=== PATIENT | male | born 1975 | race Caucasian/White ===

== ENCOUNTER 2017-01-28 13:59 | Emergency (ER) | payer MEDICARE ==
[~2017-01-28] VITALS: Ht 172.7 cm; Wt 64.1 kg
[~2017-01-28 13:59] MED LIST: FLEXERIL 1010 MG/TAB PO; NAPROXEN500 MG PO; PREDNISONE10 MG PO; TUSSIONEX PENN115 ML PO
[2017-01-28] MEDS ORDERED: CYCLOBENZAPRIN7.5 MG PO (15:26)
[2017-01-28] MEDS ORDERED: NAPROXEN500 MG PO (15:26)
[2017-01-28] MEDS ORDERED: PREDNISONE20 M1 PO (15:26)
[2017-01-28 15:58] VITALS: BP 103/63
== END 2017-01-28 15:42 | disposition home or self-care (01) ==
LOC: ED 13:59
DX: S39.012A Strain of muscle, fascia and tendon of lower back, initial encounter (principal); X50.0XXA Overexertion from strenuous movement or load, initial encounter
CPT/HCPCS: J1885; J2360

== ENCOUNTER 2017-09-23 09:38 | Emergency (ER) | payer SELFPAY ==
[~2017-09-23] VITALS: Ht 172.7 cm; Wt 64.1 kg
[~2017-09-23 09:38] MED LIST changes: +CYCLOBENZAPRIN7.5 MG PO; +PREDNISONE20 M1 PO
[2017-09-23] MEDS ORDERED: GOOD NEIGHBOR200 M3 PO (09:46)
[2017-09-23 10:50] VITALS: BP 107/73
[2017-09-23] MEDS ORDERED: IBU800 M1 PO (10:51)
[2017-09-23] MEDS ORDERED: SKELAXIN 800MG800 MG PO (10:51)
== END 2017-09-23 10:55 | disposition home or self-care (01) ==
LOC: ED 09:38
DX: S20.222A Contusion of left back wall of thorax, initial encounter (principal); W22.8XXA Striking against or struck by other objects, initial encounter; F17.210 Nicotine dependence, cigarettes, uncomplicated

== ENCOUNTER 2018-10-06 13:35 | Emergency (ER) | payer SELFPAY ==
[~2018-10-06] VITALS: Ht 172.7 cm; Wt 63.6 kg
[~2018-10-06 13:35] MED LIST changes: +GOOD NEIGHBOR200 M3 PO; +IBU800 M1 PO; +SKELAXIN 800MG800 MG PO
[2018-10-06 13:40] VITALS: BP 130/86
[2018-10-06] MEDS ORDERED: AMOXIL500 M1 PO (14:06)
[2018-10-07] MEDS ORDERED: NORCO 325 MG-51 TA1 PO (11:48)
[2018-10-07] MEDS ORDERED: CLEOCIN HCL300 MG PO (11:53)
== END 2018-10-06 14:25 | disposition home or self-care (01) ==
LOC: ED 13:35
DX: K02.9 Dental caries, unspecified (principal); F17.210 Nicotine dependence, cigarettes, uncomplicated
CPT/HCPCS: J1885

== ENCOUNTER 2018-10-07 09:46 | Emergency (ER) | payer SELFPAY ==
[~2018-10-07] VITALS: Ht 172.7 cm; Wt 63.6 kg
[~2018-10-07 09:46] MED LIST changes: +AMOXIL500 M1 PO
[2018-10-07] MEDS ORDERED: NORCO 325 MG-51 TA1 PO (11:48)
[2018-10-07] MEDS ORDERED: CLEOCIN HCL300 MG PO (11:53)
[2018-10-07 12:15] VITALS: BP 130/80
== END 2018-10-07 12:15 | disposition home or self-care (01) ==
LOC: ED 09:46
DX: K04.7 Periapical abscess without sinus (principal); K12.2 Cellulitis and abscess of mouth; I10 Essential (primary) hypertension; F17.210 Nicotine dependence, cigarettes, uncomplicated
CPT/HCPCS: J0561

== ENCOUNTER 2018-10-08 08:12 | Emergency (ER) | payer SELFPAY ==
[~2018-10-08 08:12] MED LIST changes: +CLEOCIN HCL300 MG PO; +NORCO 325 MG-51 TA1 PO
[2018-10-08 08:21] VITALS: BP 137/89
== END 2018-10-08 08:32 | disposition home or self-care (01) ==
LOC: ED 08:12
DX: K04.7 Periapical abscess without sinus (principal); F17.210 Nicotine dependence, cigarettes, uncomplicated